=== PATIENT | male | born 1975 | race African-American/Black ===

== ENCOUNTER 2016-08-27 21:04 | Emergency (ER) | payer OTHER, MEDICARE, MEDICAID ==
[2016-08-28] MEDS ORDERED: HYDROCODONE/ACETAMINOPHEN 5-325 MG TABLET PO ONE (02:56)
[2016-08-28 03:15] VITALS: BP 171/100
[2016-08-28] MEDS ORDERED: HYDROCODONE/ACETAMINOPHEN 5-325 MG 6 TAB/DSPK PO PRN (04:05)
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
== END 2016-08-28 04:34 | disposition home or self-care (01) ==
LOC: ER 21:04
DX: R07.81 Pleurodynia (principal); M54.9 Dorsalgia, unspecified; M54.2 Cervicalgia; V49.50XA Passenger injured in collision with unspecified motor vehicles in traffic accident, initial encounter; I10 Essential (primary) hypertension
CPT/HCPCS: 99283